=== PATIENT | male | born 1970 | race African-American/Black ===

== ENCOUNTER 2024-02-13 22:39 | Emergency (ER) | payer OTHER ==
[2024-02-14 00:09] LABS: SARS-CoV-2 Antigen CONTROL BLUE LINE VIS/BG OK; SARS-CoV-2 Antigen Rapid Res Negative (Negative)
[2024-02-14] MEDS ORDERED: NA CHLORIDE 0.9% 1,000 ML ONE (00:50)
[2024-02-14 01:32] LABS: Absolute Basophils 0.1 K/uL (0-0.5); Absolute Eosinophils 0.1 K/uL (0-0.5); Absolute Lymphocytes (CBC) 2.3 K/uL (0.7-4.9); Absolute Monocytes 0.7 K/uL (0.1-1.3); Absolute Neutrophil 5.7 K/uL (1.8-8.0); Basophils % 0.6 % (0-1.3); Hematocrit 36.8 % (39.6-49.0); Hemoglobin 11.4 g/dL (13.6-17.9); Lymphocytes % 26.1 % (15.3-44.8); MCH 22.8 pg (27.0-35.0); MCV 73.6 fL (80-100); MPV 8.2 fL (7.6-11.3); Monocytes % 7.6 % (3.3-12.3); Neutrophils % 64.7 % (41.7-73.7); Platelets 237 thou/uL (152-406); Red Cell Distribution Width 16.6 % (12.1-15.2)
[2024-02-14 01:44] LABS: ALT/SGPT 37 U/L (16-61); AST/SGOT 21 U/L (15-37); Albumin 3.7 g/dL (3.4-5.0); Albumin/Globulin Ratio 1.1 (1.1-1.8); Alkaline Phosphatase 68 U/L (45-117); Anion Gap 6.8 mEq/L (5.0-15.0); BUN Blood Urea Nitrogen 15 mg/dL (7-18); Bicarbonate 28 mEq/L (21-32); Bilirubin Total 0.6 mg/dL (0.2-1.0); Globulin 3.5 g/dL (2.3-3.5); Glomerular Filtration Rate 95 ml/min (=/>90); Glucose Level 101 mg/dL (74-106); Magnesium 2.3 mg/dL (1.6-2.4); Potassium 3.8 mEq/L (3.5-5.1); Protein, Total 7.2 g/dL (6.4-8.2); Sodium Level 139 mEq/L (136-145); Troponin High Sensitivity 7.1 pg/mL (<58.9)
[2024-02-14 01:49] LABS: Bilirubin Direct < 0.2 mg/dL (0-0.2); Bilirubin Indirect, Calculated 0.4 mg/dL (0.2-0.8)
--- NOTE | 2024-02-14 01:54 | EDPHYS ---
Physician Documentation [facility] Name: Filiberto Martinez Jr Age: 53 yrs Sex: Male : 1970 Arrival Date: 02/13/2024 Time: 22:39 Bed 20 Private MD: ED Physician Humza Hall HPI: 02/13 00:43 This 53 yrs old Black Male presents to ER via Ambulatory with complaints of Flu sb4 Symptoms. 00:43 malaise, feeling hot, watery eyes, fatigue x 1 week. thought it might be allergies, sb4 Claritin has not helped. reports history of depression, GERD, and HTN and reports compliance with medications. has not had blood work done in a few years now. endorses nausea. denies vomiting, diarrhea, chest pain, sob. Historical: - Allergies: 02/12 22:57 No Known Allergies; ha1 - PMHx: 22:57 ACID REFLUX; Hypertensive disorder; Depressive disorder; ha1 - PSHx: 22:57 Appendectomy; ha1 - Immunization history:: Adult Immunizations up to date. - Infectious Disease History:: Denies. - Social history:: Smoking status: Reported history of juuling and/or vaping. ROS: 02/13 00:43 Cardiovascular: Negative for chest pain, palpitations, and edema, sb4 Constitutional: Positive for fatigue, malaise, Abdomen/GI: Positive for nausea, All other systems are negative, Exam: 00:43 Head/Face: Normocephalic, atraumatic. Eyes: Extra-ocular motions intact. Periorbital sb4 areas with no swelling, redness, or edema. ENT: Mucous membranes moist. Cardiovascular: Regular rate and rhythm with a normal S1 and S2. Respiratory: No increased work of breathing, no retractions or nasal flaring. Abdomen/GI: Soft, non-tender, no distension. Skin: Warm, dry with normal turgor. Normal color with no rashes, no lesions, and no evidence of cellulitis. 00:43 Constitutional: The patient appears in no acute distress, alert, awake, Vital Signs: 02/12 22:44 BP 112 / 82; Pulse 89; Resp 19 S; Temp 97.1(T); Pulse Ox 99% on R/A; Weight 96.16 kg; ha1 Height 5 ft. 9 in. ; 02/13 00:40 BP 130 / 80; Pulse 71; Resp 20; Temp 98; Pulse Ox 100% ; kj2 01:45 BP 126 / 78; Pulse 70; Resp 18; Temp 98; Pulse Ox 100% on R/A; kj2 02/12 22:44 Body Mass Index 31.31 (96.16 kg, 175.26 cm) [facility] MDM: 02/12 22:58 Medical Screening Exam initiated sb4 02/13 01:36 Data reviewed: vital signs, nurses notes, lab test result(s), EKG, radiologic studies, sb4 and as a result, I will discharge patient. Counseling: I had a detailed discussion with the patient and/or guardian regarding the historical points, exam findings, and any diagnostic results supporting the discharge/admit diagnosis, lab results, radiology results, the need for outpatient follow up, for definitive care, to return to the emergency department if symptoms worsen or persist or if there are any questions or concerns that arise at home. 01:40 Care significantly affected by the following chronic conditions: Hypertension. sb4 02/12 23:00 Order name: SARS RAPID; Complete Time: 00:10 ha1 02/12 23:00 Order name: Flu; Complete Time: 00:10 ha1 02/13 00:32 Order name: Basic Metabolic Panel; Complete Time: 01:50 sb4 02/13 00:32 Order name: CBC with Diff; Complete Time: 01:36 sb4 02/13 00:32 Order name: LFT's; Complete Time: 01:50 sb4 02/13 00:32 Order name: Magnesium; Complete Time: 01:50 sb4 02/13 00:32 Order name: Troponin HS; Complete Time: 01:50 sb4 02/13 00:32 Order name: XRAY Chest (1 view) sb4 02/13 00:32 Order name: Cardiac monitoring sb4 02/13 00:32 Order name: EKG - Nurse/Tech sb4 02/13 00:32 Order name: IV Saline Lock sb4 02/13 00:32 Order name: Labs collected and sent sb4 02/13 00:32 Order name: O2 Per Protocol sb4 02/13 00:32 Order name: O2 Sat Monitoring sb4 Administered Medications: 01:04 Drug: NS 0.9% IV 1000 ml IV at 1 bolus Per protocol; to be given as a bolus over 60 kj2 minutes Route: IV; Rate: 1 bolus; Site: left antecubital; 02:07 Follow up: Response: No adverse reaction kj2 02:07 Follow up: IV Status: Completed infusion; IV Intake: 1000ml kj2 Disposition: 05:12 Co-signature as Attending Physician, Humza Hall MD I agree with the assessment sp4 and plan of care. I reviewed the patient's care provided by the Advanced Practice Provider and agree with the diagnosis and treatment plan. Disposition Summary: 02/14/24 01:53 Discharge Ordered Notes: Location: Home sb4 Problem: new sb4 Symptoms: are unchanged sb4 Condition: Stable sb4 Diagnosis - Other malaise and fatigue sb4 - Anemia, unspecified sb4 Followup: sb4 - With: Private Physician - When: 1 week - Reason: Recheck today's complaints, Continuance of care, Re-evaluation by your physician Discharge Instructions: - Discharge Summary Sheet sb4 - Anemia sb4 - Fatigue sb4 - Viral Illness, Adult sb4 Forms: - Patient Portal Instructions sb4 - Leadership Thank You Letter sb4 Prescriptions: - Ferrous Sulfate 325 mg (65 mg Iron) Oral tablet - take 1 tablet ORAL route once daily; 90 tablet; Refills: 0, Product Selection sb4 Permitted Signatures: Dispatcher [employer] EDMS Yue Amato, RN RN ha1 Lolis Ayoub, PASouravC PASouravC sb4 Humza Hall MD MD sp4 Glenna Birmingham RN RN kj2 Corrections: (The following items were deleted from the chart) 00:32 00:32 BASIC METABOLIC PANEL+C.LAB.BRZ ordered. EDMS EDMS 00:32 00:32 CBC+H.LAB.BRZ ordered. EDMS EDMS 00:32 00:32 HEPATIC FUNCTION+C.LAB.BRZ ordered. EDMS EDMS 00:32 00:32 MAGNESIUM+C.LAB.BRZ ordered. EDMS EDMS 00:32 00:32 Troponin High Sensitivity+C.LAB.BRZ ordered. EDMS EDMS 00:32 00:32 Urinalysis W/Microscopic+U.LAB.BRZ ordered. EDMS EDMS 00:32 00:32 Chest Single View+RAD.RAD.BRZ ordered. EDMS EDMS
--- NOTE | 2024-02-14 01:54 | ER ---
Nurse's Notes [facility] Name: Filiberto Martinez Jr Age: 53 yrs Sex: Male : 1970 Arrival Date: 02/13/2024 Time: 22:39 Bed 20 Private MD: Diagnosis: Other malaise and fatigue;Anemia, unspecified Presentation: 02/12 22:44 Chief complaint: Patient states: HEADACHE, HOT FLASHES, FEELING TIRE, WATERY EYES. ha1 22:44 Coronavirus screen: Client denies travel out of the [place] in the last 14 days. Ebola ha1 Screen: No symptoms or risks identified at this time. Initial Sepsis Screen: Does the patient meet any 2 criteria? No. Patient's initial sepsis screen is negative. Does the patient have a suspected source of infection? No. Patient's initial sepsis screen is negative. Risk Assessment: Do you want to hurt yourself or someone else? Patient reports no desire to harm self or others. Onset of symptoms was February 13, 2024. 22:44 Method Of Arrival: Ambulatory ha1 22:44 Acuity: MALCOLM 4 ha1 Triage Assessment: 22:57 General: Appears comfortable, Behavior is calm, cooperative. Pain: Denies pain. Neuro: ha1 Level of Consciousness is awake, alert, obeys commands, Oriented to person, place, time, situation. Cardiovascular: Capillary refill < 3 seconds Patient's skin is warm and dry. Respiratory: Airway is patent Trachea midline Respiratory effort is even, unlabored, Respiratory pattern is regular, symmetrical. GI: Abdomen is round non-distended. Historical: - Allergies: 22:57 No Known Allergies; ha1 - PMHx: 22:57 ACID REFLUX; Hypertensive disorder; Depressive disorder; ha1 - PSHx: 22:57 Appendectomy; ha1 - Immunization history:: Adult Immunizations up to date. - Infectious Disease History:: Denies. - Social history:: Smoking status: Reported history of juuling and/or vaping. Screenin:00 [facility] ED Fall Risk Assessment (Adult) History of falling in the last 3 months, ha1 including since admission No falls in past 3 months (0 pts) Confusion or Disorientation No (0 pts) Intoxicated or Sedated No (0 pts) Impaired Gait No (0 pts) Mobility Assist Device Used No (0 pt) Altered Elimination No (0 pt) Score/Fall Risk Level 0 - 2 = Low Risk Oriented to surroundings, Maintained a safe environment, Educated pt \T\ family on fall prevention, incl call for assistance when getting out of bed, Hourly rounding (assess needs \T\ fall precautionary measures) done. Abuse screen: Denies threats or abuse. Denies injuries from another. Nutritional screening: No deficits noted. Tuberculosis screening: No symptoms or risk factors identified. Assessment: 02/13 00:39 General: Appears in no apparent distress. Behavior is calm, cooperative. Pain: kj2 Complains of pain in generalized Pain currently is 5 out of 10 on a pain scale. Neuro: Level of Consciousness is awake, alert, obeys commands, Oriented to person, place, time, situation. Cardiovascular: Patient's skin is warm and dry. Respiratory: Airway is patent Respiratory effort is unlabored. GI: No signs and/or symptoms were reported involving the gastrointestinal system. : No signs and/or symptoms were reported regarding the genitourinary system. 01:45 Reassessment: Patient appears in no apparent distress at this time. Patient and/or kj2 family updated on plan of care and expected duration. Pain level reassessed. Patient is alert, oriented x 3, equal unlabored respirations, skin warm/dry/pink. Vital Signs: 02/12 22:44 BP 112 / 82; Pulse 89; Resp 19 S; Temp 97.1(T); Pulse Ox 99% on R/A; Weight 96.16 kg; ha1 Height 5 ft. 9 in. ; 02/13 00:40 BP 130 / 80; Pulse 71; Resp 20; Temp 98; Pulse Ox 100% ; kj2 01:45 BP 126 / 78; Pulse 70; Resp 18; Temp 98; Pulse Ox 100% on R/A; kj2 02/12 22:44 Body Mass Index 31.31 (96.16 kg, 175.26 cm) ha1 ED Course: 02/12 22:43 Patient arrived in ED. gm2 22:44 Lolis Ayoub PA-C is PHCP. sb4 22:44 Humza Hall MD is Attending Physician. sb4 22:57 Triage completed. ha1 02/13 00:38 Glenna Birmingham, RN is Primary Nurse. kj2 00:40 Patient has correct armband on for positive identification. Bed in low position. Call kj2 light in reach. Provided Education on: call light. 00:41 Arm band placed on Patient placed in an exam room, on a stretcher. kj2 00:41 No provider procedures requiring assistance completed. kj2 00:45 Inserted saline lock: 20 gauge in left antecubital area, using aseptic technique. Blood kj2 collected. Flushed with 10 mL NS. 01:17 XRAY Chest (1 view) In Process Unspecified. EDMS 02:05 IV discontinued, intact, bleeding controlled, No redness/swelling at site. Pressure kj2 dressing applied. Administered Medications: 01:04 Drug: NS 0.9% IV 1000 ml IV at 1 bolus Per protocol; to be given as a bolus over 60 kj2 minutes Route: IV; Rate: 1 bolus; Site: left antecubital; 02:07 Follow up: Response: No adverse reaction kj2 02:07 Follow up: IV Status: Completed infusion; IV Intake: 1000ml kj2 Medication: 00:40 VIS not applicable for this client. kj2 Intake: 02:07 IV: 1000ml; Total: 1000ml. kj2 Outcome: 01:53 Discharge ordered by . sb4 02:05 Discharged to home ambulatory, kj2 02:05 Condition: stable 02:05 Discharge instructions given to patient, Instructed on discharge instructions, follow up and referral plans. medication usage, Demonstrated understanding of instructions, follow-up care, medications, Prescriptions given X 1, 02:12 Patient left the ED. kj2 Signatures: Dispatcher [employer] EDMS Yue Amato, RN RN ha1 Lolis Ayoub PA-C PA-C saman4 Iris Sharma gm2 Glenna Birmingham RN RN kj2
--- NOTE | 2024-02-14 02:35 | RAD REPORT ---
CLINICAL HISTORY: Fatigue. COMPARISON: None. TECHNIQUE: XR CHEST 1 VIEW 02/14/2024 12:32 AM LAYDOWN MACHINE OPERATOR FINDINGS: The heart is borderline in size. Lungs are clear without consolidation, atelectasis, mass or edema. T here is no pleural effusion. There is no pneumothorax. There are no acute osseous findings. IMPRESSION: Clear lungs. Electronically signed by: Berry London MD 02/14/2024 02:32 AM LAYDOWN MACHINE OPERATOR RP Due to temporary technical issues with the PACS/[facility] reporting system, reports are being arsenio d by the in-house radiologist without review as a courtesy to ensure prompt reporting the interpreting radiologist is fully responsible for the content of the report. Transcribed Date/Time: 02/14/2024 2:35 AM
[2024-02-14 02:59] VITALS: TEMP 98; O2SAT 100
[2024-02-14 03:01] VITALS: BP 126/78
== END 2024-02-14 02:12 | disposition home or self-care (01) ==
LOC: ER 22:39
DX: R53.81 Other malaise (principal); R53.83 Other fatigue; D64.9 Anemia, unspecified; Z11.52 Encounter for screening for COVID-19; I10 Essential (primary) hypertension
CPT/HCPCS: 85025; 80048; 36415; 83735; 80076; 84484; 87804 ×2; 71045; 96360; 99284; 87811; J7030